=== PATIENT | male | born 1995 | race Caucasian/White ===

== ENCOUNTER 2017-03-31 08:21 | Emergency (ER) | payer BC ==
[~2017-03-31] VITALS: Ht 177.8 cm; Wt 111.7 kg
[2017-03-31] MEDS ORDERED: MOTRIN800 MG PO (10:15)
[2017-03-31 11:08] VITALS: BP 120/84
== END 2017-03-31 11:08 | disposition home or self-care (01) ==
LOC: EME 08:21
DX: S83.92XA Sprain of unspecified site of left knee, initial encounter (principal); X58.XXXA Exposure to other specified factors, initial encounter; Y93.61 Activity, american tackle football
CPT/HCPCS: 73564; 99281; 99284